=== PATIENT | female | born 1945 | race Caucasian/White ===

== ENCOUNTER → 2017-12-12 | Outpatient (CLI) | payer MEDICARE | END | disposition home or self-care (01) | LOC: LABPAT 10:47 | PROVIDERS: ATTEND Orthopaedic Surgery | DX: Z01.812 Encounter for preprocedural laboratory examination (principal) | CPT/HCPCS: 87070 ==

== ENCOUNTER 2017-12-22 08:47 | Inpatient (IN) | payer MEDICARE ==
[2017-12-15 11:17] VITALS: BMI 36.0
[~2017-12-22 08:47] MED LIST: ACETAMINOPHEN TAB 500 MG TAB PO ONE; ONDANSETRON 4 MG/2 ML VIAL IVP ONE; TRANEXAMIC ACID 1,000 MG in SODIUM CHLORIDE 0.9% 100 ML IVPB ONE; ceFAZolin IN SWFI 2 GM/20 ML SYRINGE IVP ONE
[2017-12-22] MEDS ORDERED: LACTATED RINGERS 1,000 ML IV ONE ×2 (10:08→11:25)
[2017-12-22] MEDS ORDERED: LIDOCAINE 1% 20 ML VIAL (10MG/ML) FOR IV START INTRADERMA ONE (10:09)
[2017-12-22] MEDS ORDERED: DEXAMETHASONE SOD PHOSPHATE 10 MG/ML 1 ML VIAL IV ONE (10:17)
[2017-12-22] MEDS ORDERED: HYDROmorphone 1 MG/ML 1 ML SYRINGE IVP PRN ×4 (10:24)
[2017-12-22] MEDS ORDERED: hydrOXYzine PAMOATE 25 MG CAP PO PRN (10:24)
[2017-12-22] MEDS ORDERED: MAGNESIUM HYDROXIDE 2,400 MG/10 ML CUP PO PRN (10:24)
[2017-12-22] MEDS ORDERED: HYDROcodone/APAP 5-325MG 1 EACH TAB PO PRN (10:24)
[2017-12-22] MEDS ORDERED: NALOXONE 0.4 MG/ML 1 ML VIAL IV PRN (10:24)
[2017-12-22] MEDS ORDERED: NA PHOS,M-B/NA PHOS,DI-BA 133 ML ENEMA RECTAL PRN (10:24)
[2017-12-22] MEDS ORDERED: BISACODYL 10 MG SUPP RECTAL PRN (10:24)
[2017-12-22] MEDS ORDERED: ACETAMINOPHEN TAB 325 MG TAB PO PRN (10:24)
[2017-12-22] MEDS: ROPIVACAINE 246.25 MG, EPINEPHrine 0.5 MG, KETOROLAC 30 MG, cloNIDine HCL/PF 80 MCG, WA... MISCELLANE ONE ×10 (11:10→12:02)
[2017-12-22] MEDS ORDERED: ceFAZolin 3,000 MG in SODIUM CHLORIDE 0.9% IRRIGATIO 3,000 ML IRRIGATION ONE (11:10)
--- NOTE | 2017-12-22 12:57 | XR ---
EXAMINATION TYPE: XR knee limited RT DATE OF EXAM: 12/22/2017 COMPARISON: NONE TECHNIQUE: Two views submitted HISTORY: Post op FINDINGS: There is a prosthetic knee in near anatomic alignment. There is soft tissue edema and emphysema. IMPRESSION: 1. Postoperative change. Appears in near-anatomic alignment
--- NOTE | 2017-12-22 13:03 | P.OP ---
Date of Procedure: 12/22/17 Procedure(s) Performed: PREOPERATIVE DIAGNOSIS: Right knee severe osteoarthritis with genu varum POSTOPERATIVE DIAGNOSIS: Right knee severe osteoarthritis with genu varum OPERATION: Right knee cemented total replacement arthroplasty. ANESTHESIA: Spinal ESTIMATED BLOOD LOSS: 100 ml. HAND HOSE CUTTER: Genevieve Encinas PA-C (assistance with: patient positioning, retraction, exposure, hemostasis, leg positioning, implantation, irrigation, closure, dressing) COMPLICATIONS: None apparent. COMPONENTS IMPLANTED: Persona system from [employer] INDICATIONS: Mrs. Barrett is a 72-year-old female with a history of knee osteoarthritis. The patient's knee is end-stage, and conservative management has failed. The operation of knee replacement has been discussed at length in the office, as well as potential risks and complications. These are inclusive of, but not limited to: bleeding, infection, scarring, discomfort, blood vessel and nerve damage, need for further surgery, failure to relieve symptoms, persistence, recurrence, or worsening of problems, loosening, dislocation, wear , blood clot, pulmonary embolism, , gait dysfunction, stiffness, and other risks as discussed in the office. The patient elects to proceed and the consent form has been signed. PROCEDURE: The patient was taken to the operating room and positioned on the operating room table in the supine position. Anesthesia was initiated. Care was taken to make sure that all pressure points were adequately padded. The operative lower extremity was prepped and draped in the usual aseptic fashion using ChloraPrep. Ioban drape was used for the case and the patient received intravenous antibiotics within one hour of the incision. A pneumotourniquet and leg henry were used for the case. The limb was exsanguinated with an Esmarch bandage and the tourniquet was inflated to 350 mmHg. Time-out was called confirming the patient's identity, side, procedure and administration of antibiotics. The incision was then created midline directly over the knee, carried down through skin and into the subcutaneous tissues and down to fascia. Full thickness subcutaneous medial flap was developed. Medial parapatellar arthrotomy was performed and the interior of the knee was inspected. There was end-stage osteoarthritis of the knee with a mild to moderate genu varum type deformity. The fat pad was excised and proximal medial release on the tibia was completed using meticulous dissection and a curved osteotome. The anterior cruciate ligament was taken down. Note was made of significant attrition of the anterior and significant degenerative appearance of the posterior cruciate ligaments. The exposure was excellent. The knee was flexed 90 degrees and the patella was everted. A spot was chosen on the femur approximately 1 cm anterior to the posterior cruciate ligament insertion and an intramedullary hole was created within the femur. The intramedullary guide was then set to 5 degrees of valgus. The distal cutting block was attached and pinned into position. An appropriate amount of distal femoral resection was set. The oscillating saw was then used to make the distal femoral cut. This cut was confirmed to be flat with the flat end of an osteotome. The retractors were placed around the tibia and the tibial surface was addressed. The angle and depth of resection was adjusted using an extramedullary cutting guide. The guide had a built-in 3 degree posterior slope cut. Once the cutting guide was adjusted appropriately and in line with the axis of the tibia and confirmed to be in good position in relation to the second metatarsal and transmalleolar axis, the tibial cut was then created with protection of the posterior neurovascular structures and the collateral ligaments. The tibial cut surface was removed and sized. Femoral sizing was then accomplished using anterior referencing. Care was taken to analyze the posterior condyles for signs of deficiency or severe wear, and adjustments to the guide were made, as appropriate. 3 degree external rotation pins were placed. The cutting jig for the femur was applied to these pins. The planned cuts were further analyzed prior to performing them with the oscillating saw. No femoral notching was produced. Bone fragments were removed and the cut surfaces were finished, as necessary, with a reciprocating saw. Spacer block technique was then used to confirm that the flexion and extension gaps were equal. Soft tissue releases and adjustment of the tibial and/or femoral cuts were made, as necessary, until the gaps were equal. This included release of the posterior cruciate ligament, which was tight in this patient and , if left unreleased, would have resulted in poor kinematics and possibly early loosening. The femur was then further finished for a posterior cruciate ligament substituting component. Patellar resurfacing was performed using a reamer. The size of the required patellar component was estimated and the patellar surface was then reamed down to a residual thickness which would recreate the [place] thickness with the component. The placement of the patellar component was influenced by the degree of patellar subluxation, if any, noted on the preoperative x-rays. Prior to placing trial components, anesthetic solution consisting of ropivicaine with epinephrine, ketorolac, and clonidine was injected carefully and methodically in a grid pattern using aspiration technique into the soft tissue around the knee circumferentially, starting with the deeper tissues first and progressing to fascia, and then finally the skin/subcutaneous tissue. Particular care was taken when injecting the posterior capsule. The trial components were inserted. The tibial tray was allowed to self center and the patella was noted to track very well. The position of the tibial component was marked and the tibia was then finished for a stemmed tibial component. Cement was mixed on the back table and applied to the final components. Trial components were removed and the cut surfaces of the bone were pulse lavaged thoroughly and dried. Cement was then applied to the tibial surface and pressurized into the surface using finger pressurization technique. The tibial component was then applied and excess cement was removed after it was impacted securely and noted to be flush with the cut surface. In similar fashion, the cement was applied to the cut femoral surface, pressurized in using finger pressurization and the component was impacted into place. Excess cement was removed. The polyethylene spacer was then implanted and locked into position. The patellar component was then applied in similar technique and a patellar clamp was used to hold the patella in place as the cement hardened. Once the cement had fully hardened, the knee was reinspected. Any other cement extrusion was removed and final kinematic testing showed range of motion from 0 to 130 degrees with excellent stability, both medially and laterally and appropriate alignment of the leg. Patellar tracking was excellent. The knee was then thoroughly pulse lavaged with normal saline. The tourniquet was deflated and hemostasis was obtained with electrocautery and IV tranexamic acid, 1 g given at the start of the operation and 1 g at the start of closure. Closure was with #2 Ethibond in the fascia/capsule and supplemented with #2 Quill, 2-0 Vicryl suture was used for the subcutaneous tissues and 3-0 Quill for the skin. Dermabond/Steri-Strips were then applied. A lightly compressive dressing was applied using Webril and an Shemar wrap. The patient was then transferred to stretcher and taken to the recovery room in stable condition. Sponge and needle counts were correct.
[2017-12-22] MEDS: LACTATED RINGERS 1,000 ML IV SCH (14:19)
[2017-12-22] MEDS ORDERED: WARFARIN 5 MG TAB PO ONE (18:00)
[2017-12-22] MEDS: ceFAZolin IN SWFI 2 GM/20 ML SYRINGE IVP SCH (18:11)
[2017-12-22 19:53] VITALS: RESP 16
[2017-12-22] MEDS ORDERED: LATANOPROST 0.005% OPHTH DROPS 2.5 ML BTL BOTH EYES SCH (21:00)
[2017-12-22] MEDS ORDERED: SENNOSIDES-DOCUSATE SODIUM 1 EACH TAB PO SCH (21:00)
--- NOTE | 2017-12-22 21:01 | CONS ---
CONSULTATION DATE OF CONSULTATION: 12/22/2017 REASON FOR CONSULTATION: Medical management requested by Dr. Gillespie. CONSULTATION: This is a pleasant 72-year-old patient of Dr. Jodi Gonsalves. Chronic stable medical conditions include hyperlipidemia. The patient has trouble taking statins, was told she had a possible HI in the past from EKG changes. The patient had 3 seizures about 33 years ago, none since then. Glaucoma that is controlled and arthritis in the hands. The patient is status post right total knee arthroplasty. Some pain is present. No nausea, vomiting. Denies any cardiac symptoms. Sitting up. Did tolerate some supper. REVIEW OF SYSTEMS: CONSTITUTIONAL: None. HEENT none. RESPIRATORY none. CARDIOVASCULAR none. GASTROINTESTINAL none. GENITOURINARY none. MUSCULOSKELETAL: Arthritic pain especially in the hands and right knee. DERMATOLOGICAL, HEMATOLOGIC AND LYMPHATICS: None. PSYCHIATRY none. NEUROLOGICAL none. PAST MEDICAL HISTORY: Glaucoma, hyperlipidemia, does not take statins, HI as per EKG, 3 seizure episodes over 33 years ago, arthritis in the hands. PAST SURGICAL HISTORY: , arthroscopy right knee, ganglion cyst removed from the left knee, 3 C sections. SOCIAL HISTORY: Alcohol occasionally. Does not smoke. . Retired teacher. FAMILY HISTORY: Breast cancer. HOME MEDICATIONS: 1. Multivitamin 1 tablet p.o. daily. 2. Xalatan 0.005% 1 drop to both eyes q.h.s. 3. Ketoconazole 2% topical daily. 4. Ibuprofen 800 mg p.o. daily. 5. Cipro 250 p.o. b.i.d. 6. Vitamin D3 2000 units p.o. daily. 7. Coumadin 2.5 p.o. daily. 8. Senokot S 1 tablet p.o. b.i.d. 9. [place] 5 1-2 tablets q.4 p.r.n. It may be noted the patient's Coumadin and [place] are not her home medications. ALLERGIES: LATEX. PHYSICAL EXAMINATION: VITAL SIGNS: Temperature 97.7, pulse 74, respirations 16, blood pressure 133/77, pulse ox 95% on room air. GENERAL APPEARANCE: Well built, BMI 36. Propped up in bed comfortable. EYES: Pupils equal. Conjunctivae normal. HEENT: External appearance of nose and ears normal. Oral cavity normal. NECK: JVD not raised. Mass not palpable. RESPIRATORY: Effort normal. LUNGS are clear. CARDIOVASCULAR: 1st and 2nd sound normal. No edema. ABDOMEN: Soft, nontender. Liver and spleen not palpable. LYMPHATICS: No lymph nodes palpable in the neck and axillae. PSYCHIATRY: Alert and oriented times three. Mood and affect normal. MUSCULOSKELETAL: Evidence of osteoarthritis especially in the hands. Right knee in a dressing. INVESTIGATIONS: No blood work from currently. ASSESSMENT: 1. Right total knee arthroplasty. 2. Primary osteoarthritis of both the hands. 3. Hyperlipidemia patient cannot take statins. 4. Glaucoma. 5. Obesity BMI 36. PLAN: Home medications are resumed. Patient is on Coumadin for DVT prophylaxis per Dr. Gillespie. Pain is controlled. The patient cannot take statins. We will have dietitian see the patient for weight loss measures. Care was discussed with the patient. Questions were answered. Thank you Dr. Gillespie. Copy to Dr. Jodi Gonsalves. MMWILNERL / SHARN: [id number] /
[2017-12-22] MEDS ORDERED: TEMAZEPAM 15 MG CAP PO PRN (22:00)
[2017-12-23] MEDS: LACTATED RINGERS 1,000 ML IV SCH ×2 (02:52→07:37)
[2017-12-23] MEDS: ceFAZolin IN SWFI 2 GM/20 ML SYRINGE IVP SCH (03:10)
[2017-12-23 07:45] LABS: Basophils % (A) 0 %; Eosinophils % (A) 0 %; HCT 36.1 % (34.0-46.0); HGB 11.3 gm/dL (11.4-16.0); Lymphocytes # (A) 1.2 k/uL (1.0-4.8); Lymphocytes % (A) 11 %; MCH 28.5 pg (25.0-35.0); MCHC 31.4 g/dL (31.0-37.0); MCV 90.7 fL (80.0-100.0); Mean Platelet Volume 7.3; Monocytes # (A) 0.7 k/uL (0-1.0); Monocytes % (A) 7 %; Neutrophils # (A) 8.6 k/uL (1.3-7.7); Neutrophils % (A) 80 %; Platelet Count 208 k/uL (150-450); RBC 3.98 m/uL (3.80-5.40); RDW 12.9 % (11.5-15.5); WBC 10.7 k/uL (3.8-10.6)
[2017-12-23 07:51] LABS: INR 1.2 (<1.2); Prothrombin Time 11.7 sec (9.0-12.0)
[2017-12-23 08:14] VITALS: BP 133/77; PULSE 68; TEMP 98.4
[2017-12-23] MEDS: HYDROcodone/APAP 5-325MG 1 EACH TAB PO PRN ×2 (08:29→14:08)
[2017-12-23] MEDS ORDERED: MELOXICAM 7.5 MG TAB PO SCH (09:00)
[2017-12-23] MEDS ORDERED: MULTIVITAMINS, THERA 1 EACH TAB PO SCH ×2 (09:00→12:00)
--- NOTE | 2017-12-23 10:23 | P.DS ---
Providers Date of admission: 12/22/17 09:12 Expected date of discharge: 12/23/17 Attending physician: Dick Gillespie Consults: 12/22/17 10:24 Consult Physician Routine Consulting Provider: Jodi Gonsalves Consult Reason/Comments: Medical management Do you want consulting provider notified?: Yes 12/22/17 13:46 Consult Physician Routine Consulting Provider: Kevin Kee Consult Reason/Comments: medical managment Do you want consulting provider notified?: Yes Primary care physician: Jodi Gonsalves - Discharge Diagnosis(es) (1) Osteoarthritis of right knee Current Visit: Yes Status: Acute (2) Status post total right knee replacement Current Visit: Yes Status: Acute Hospital Course: This is a pleasant 72-year-old female last seen in our office with complaints of right knee pain. Patient has known history of degenerative arthritis of the right knee and presented to discuss options. After discussion and consideration , patient elected to proceed with a total knee arthroplasty of the right knee. The patient was seen preoperatively and medically cleared for surgery by her primary care physician. The patient was admitted to [facility] and underwent right total knee arthroplasty on 12/22/[address] Gillespie. The procedure was performed without complications or sequelae. The patient has done well postoperatively. The patient was seen and evaluated at bedside today and denies any new complaints. Pain is reasonably controlled. Dressing is clean dry and intact. Incision looks fine with no erythema or active drainage. Calf is soft and nontender. The patient has full foot and ankle motion without difficulty. Patient's right lower extremity is neurovascular intact. Patient is orthopedically stable for discharge to home today. Pertinent Studies: Laboratory Tests 12/23/17 12/23/17 07:00 07:00 WBC 10.7 H RBC 3.98 Hgb 11.3 L Neutrophils # 8.6 H PT 11.7 INR 1.2 H Patient Condition at Discharge: Stable Plan - Discharge Summary Discharge Rx Participant: Yes New Discharge Prescriptions: New HYDROcodone/APAP 5-325MG [[place] 5-325] 1 - 2 each PO Q4-6H PRN #50 tab PRN Reason: Pain Sennosides-Docusate Sodium [Senokot-S] 1 tab PO BID #60 tablet Warfarin [Coumadin] 2.5 mg PO DAILY #1 tab No Action Multivitamins, Thera [Multivitamin (formulary)] 1 tab PO DAILY Latanoprost Ophth [Xalatan 0.005%] 1 drops BOTH EYES HS Ketoconazole [Ketoconazole 2%] 1 applic TOPICAL DAILY Ibuprofen 800 mg PO DAILY Cholecalciferol (Vitamin D3) [Vitamin D3] 2,000 unit PO DAILY Ciprofloxacin HCl 250 mg PO BID Warfarin [Coumadin] 7.5 mg PO ONCE Discharge Medication List Cholecalciferol (Vitamin D3) [Vitamin D3] 2,000 unit PO DAILY 12/15/17 [History] Ibuprofen 800 mg PO DAILY 12/15/17 [History] Ketoconazole [Ketoconazole 2%] 1 applic TOPICAL DAILY 12/15/17 [History] Latanoprost Ophth [Xalatan 0.005%] 1 drops BOTH EYES HS 12/15/17 [History] Multivitamins, Thera [Multivitamin (formulary)] 1 tab PO DAILY 12/15/17 [History ] Ciprofloxacin HCl 250 mg PO BID 12/22/17 [History] HYDROcodone/APAP 5-325MG [[place] 5-325] 1 - 2 each PO Q4-6H PRN #50 tab 12/22/17 [Rx] Sennosides-Docusate Sodium [Senokot-S] 1 tab PO BID #60 tablet 12/22/17 [Rx] Warfarin [Coumadin] 2.5 mg PO DAILY #1 tab 12/22/17 [Rx] Warfarin [Coumadin] 7.5 mg PO ONCE 12/22/17 [History] Follow up Appointment(s)/Referral(s): Genevieve Encinas, [facility] [PHYSICIAN SUPERVISOR [employer]] - 2 Weeks [facility], [NON-STAFF] - Ambulatory/Diagnostic Orders: Continuous Passive Motion (CPM) Machine [DME.AMB1] Time Frame: 3 Weeks, Facility : [facility], Location: Case Management Prothrombin Time INR [LAB.AMB] Location: None Selected Activity/Diet/Wound Care/Special Instructions: May bear wt as tolerated with walker. May shower if no drainage from incision. CPM 5-6h daily. Call [facility] once home to arrange delivery of CPM- [phone] Discharge Disposition: HOME WITH HOME HEALTH SERVICES
[2017-12-23] MEDS ORDERED: WARFARIN 5 MG TAB PO ONE (18:00)
== END 2017-12-23 14:26 | disposition home health service (06) | DRG 470 ==
LOC: 2ORMAIN 09:12 → 3SUR 12:39
PROVIDERS: ADMIT Orthopaedic Surgery; ATTEND Orthopaedic Surgery
PROC: 0SRC0J9 Replacement of Right Knee Joint with Synthetic Substitute, Cemented, Open Approach (ICD-10-PCS; principal; 2017-12-22 11:00)
DX: M17.11 Unilateral primary osteoarthritis, right knee (principal); M21.161 Varus deformity, not elsewhere classified, right knee; E78.5 Hyperlipidemia, unspecified; M13.842 Other specified arthritis, left hand; M13.841 Other specified arthritis, right hand; E66.9 Obesity, unspecified; H40.9 Unspecified glaucoma; I25.2 Old myocardial infarction; Z80.3 Family history of malignant neoplasm of breast; Z91.040 Latex allergy status; Z68.36 Body mass index [BMI] 36.0-36.9, adult; Z79.1 Long term (current) use of non-steroidal anti-inflammatories (NSAID); Z79.01 Long term (current) use of anticoagulants
CPT/HCPCS: 85025; 85610; 88300